=== PATIENT | female | born 1990 | race Caucasian/White ===

== ENCOUNTER 2018-04-15 04:25 | Emergency (ER) | payer SELFPAY ==
[2018-04-15 04:39] VITALS: BP 126/74
--- NOTE | 2018-04-15 05:02 | ED Physician Documentation ---
Lower Extremity Injury - HISTORIAN Historian: patient - HPI Stated Complaint: Right foot injury Chief Complaint: Foot Injury Additional Information: One of her children dropped a rock on her foot yesterday at about 1500. She has been walking on foot since. Toouk tylenol once yesterday. Previous fx of same foot. - ROS CONST: no problems - PAST HX Past History: other (hypothyroid) Allergies/Adverse Reactions: Allergies Allergy/AdvReac Type Severity Reaction Status Date / Time No Known Allergies Allergy Verified 04/15/18 04:38 - SOCIAL HX Smoking History: non-smoker - FAMILY HX Family History: no significant history - VITAL SIGNS Vital Signs: Vital Signs Temp Pulse Resp BP Pulse Ox 99.0 F 72 16 126/74 99 04/15/18 04:30 04/15/18 04:30 04/15/18 04:30 04/15/18 04:30 04/15/18 04:30 - REVIEWED ASSESSMENTS Nursing Assessment Reviewed: Yes Vitals Reviewed: Yes Progress - Progress Progress: Report Submission Date: Apr 15, 2018 5:14:02 AM CDT Patient Study Name: LATONIA MCMILLAN Date: Apr 15, 2018 4:52:35 AM CDT Modality Type: DX Gender: F Description: LOWER EXTREMITY : 89 Institution: [facility] Physician: JD MORENO - GUILLERMO Examination: Plain film right foot History: PT STATES RT FOOT WAS HIT BY A LARGE ROCK X1 DAY AGO. PAIN IN THE MEDIAL ASPECT OF FOOT. HX OF FRACTURE IN RT FOOT (Hx) Findings: 3 views of the right foot demonstrates normal cortical margins. No fracture or dislocation. No soft tissue swelling. No joint effusion. Impression: No acute osseous process. Electronically signed on Apr 15, 2018 5:14:02 AM CDT by: Cooper Pena ED Results Lab/Radiology - Orders Orders: ED Orders Category Date Time Status FOOT 3V OR MORE VIEWS [FOOT 3 VIEWS OR MORE] [RAD] Stat Exams 04/15/18 Ordered Lower Extremities Injury Phy - Physical Exam General Appearance: alert, mild distress (anxious) Hips: bilateral hip: no evidence of injury Legs: bilateral: no evidence of injury Knees: bilateral: no evidence of injury Ankle: right: abrasions/laceration (< 1 cm lac medially), left: normal inspection Foot: right foot: swelling (slight, forefoot), other (DP and PT 2+), left foot: no evidence of injury, bilateral foot: normal range of motion Gait: antalgic gait Neuro/Vascular/Tendon: no vascular compromise, motor nml, sensation nml Head/ENT: nml inspection Neck/Back: nml inspection Resp/CVS: no resp. distress Discharge Clincal Impression: Contusion of foot, right Qualifiers: Encounter type: initial encounter Qualified Code(s): S90.31XA - Contusion of right foot, initial encounter Referrals: Cecily Baugh MD [Primary Care Provider] - 2 Days Additional Instructions: Ice to the sore foot for 30 minutes of each hour you are awake. You can take tylenol or ibuprofen if needed for discomfort. Condition: Good Decision to Admit: NO Decision Time: 05:20
[2018-04-15] MEDS ORDERED: DIPH,PERTUSS(ACELL),TET VAC/PF 0.5 ML DISP.SYRIN IM ONE (05:20)
--- NOTE | 2018-04-15 05:49 | Diagnostic Imaging Report ---
[facility] [address] [facility].[address] [id number] Report Submission Date: Apr 15, 2018 5:14:02 AM CDT Patient Study Name: LATONIA MCMILLAN Date: Apr 15, 2018 4:52:35 AM CDT Modality Type: DX Gender: F Description: LOWER EXTREMITY : 89 Institution: [facility] Physician: JD MORENO Examination: Plain film right foot History: PT STATES RT FOOT WAS HIT BY A LARGE ROCK X1 DAY AGO. PAIN IN THE MEDIAL ASPECT OF FOOT. HX OF FRACTURE IN RT FOOT (Hx) Findings: 3 views of the right foot demonstrates normal cortical margins. No fracture or dislocation. No soft tissue swelling. No joint effusion. Impression: No acute osseous process. Electronically signed on Apr 15, 2018 5:14:02 AM CDT by: Cooper COPELAND
== END 2018-04-15 05:30 | disposition home or self-care (01) ==
LOC: ED 04:25
DX: S90.31XA Contusion of right foot, initial encounter (principal); W23.1XXA Caught, crushed, jammed, or pinched between stationary objects, initial encounter; Y92.9 Unspecified place or not applicable; Y93.9 Activity, unspecified; Y99.9 Unspecified external cause status
CPT/HCPCS: 73630; 90471; 90715; 99283